=== PATIENT | female | born 1975 | race African-American/Black ===

== ENCOUNTER 2022-06-03 07:31 | Inpatient (IN) | payer MEDICAID ==
[~2022-06-03] VITALS: Ht 157.5 cm; Wt 80.7 kg
[2022-06-03 09:36] LABS: BASOPHILS % 0.4 % (0.0-2.0); EOSINOPHILS % 0.5 % (0.0-5.0); HEMATOCRIT. 23.1 % (36.0-48.0); LYMPHOCYTES % 8.5 % (20.0-50.0); MEAN CORPUSCULAR HEMOGLOBIN 22.4 pg (28.0-32.0); MEAN CORPUSCULAR VOLUME 74.8 fL (81.0-99.0); MEAN PLATELET VOLUME 8.2 fl (7.4-10.4); MONOCYTES % 5.3 % (2.0-8.0); NEUTROPHILS % 85.3 % (40.0-76.0); PLATELET 424 x1000/uL (130-400); RED BLOOD CELL COUNT 3.09 mill/uL (4.2-5.4)
[2022-06-03 09:44] LABS: HEMOGLOBIN. 6.9 g/dL (12.0-16.0)
[2022-06-03 09:46] LABS: CHLORIDE 110 mEq/L (98-107)
[2022-06-03 09:47] LABS: PROTHROMBIN TIME 10.9 sec (9.6-11.0)
[2022-06-03 12:30] VITALS: BP 85/48
[2022-06-03] MEDS ORDERED: CEFTRIAXONE 1 G PREMIX 50 ML IV SCH (12:30)
[2022-06-03] MEDS ORDERED: ACETAMINOPHEN 325MG TABLET PO PRN (12:30)
[2022-06-03] MEDS: IRON SUCROSE COMPLEX 100 MG/5 ML ML IV SCH (13:27)
[2022-06-03 13:39] VITALS: BP 85/48
[2022-06-03 16:00] VITALS: BP 83/53
[2022-06-03] MEDS: CEFTRIAXONE 1,000 MG in DEXTROSE 5% WATER 50 ML IV SCH (16:28)
[2022-06-03 20:00] VITALS: BP 100/53
[2022-06-04] VITALS (10 sets, daily range): BP systolic 91–105; BP diastolic 49–61
[2022-06-04] MEDS: IRON SUCROSE COMPLEX 100 MG/5 ML ML IV SCH (08:55)
[2022-06-04 13:05] LABS: BASOPHILS % 0.4 % (0.0-2.0); EOSINOPHILS % 1.1 % (0.0-5.0); MEAN CORPUSCULAR HEMOGLOBIN 22.7 pg (28.0-32.0); MEAN CORPUSCULAR VOLUME 74.5 fL (81.0-99.0); MEAN PLATELET VOLUME 8.6 fl (7.4-10.4); MONOCYTES % 6.8 % (2.0-8.0); NEUTROPHILS % 71.7 % (40.0-76.0); PLATELET 417 x1000/uL (130-400); RED BLOOD CELL COUNT 2.29 mill/uL (4.2-5.4); RED CELL DISTRIBUTION WIDTH 18.9 % (11.6-14.6)
[2022-06-04 13:21] LABS: HEMOGLOBIN. 5.2 g/dL (12.0-16.0)
[2022-06-04 13:22] LABS: HEMATOCRIT. 17.1 % (36.0-48.0)
[2022-06-04] MEDS: CEFTRIAXONE 1,000 MG in DEXTROSE 5% WATER 50 ML IV SCH (14:45)
[2022-06-04 16:15] LABS: CLARITY URINE CLOUDY (CLEAR); KETONES URINE NEGATIVE (NEGATIVE); LEUKOCYTE ESTERASE URINE 1+ (NEGATIVE); NITRITE URINE NEGATIVE (NEGATIVE); OCCULT BLOOD URINE 3+ (NEGATIVE); PROTEIN URINE 4+ (NEGATIVE); SPECIFIC GRAVITY URINE 1.037 (1.005-1.030); UROBILINOGEN URINE 0.2 E.U./dL (0.2-1.0)
[2022-06-04 16:36] LABS: COLOR URINE RED (YELLOW)
[2022-06-04] MEDS ORDERED: ESTROGENS,CONJUGATED 25MG/VIAL IV SCH (17:00)
[2022-06-04] MEDS: ONDANSETRON HCL 4MG/2ML INJ IV PRN (19:03)
[2022-06-04 20:50] LABS: HEMOGLOBIN 5.3 g/dL (12.0-16.0)
[2022-06-05] VITALS (23 sets, daily range): BP systolic 95–113; BP diastolic 50–85
[2022-06-05] MEDS: ONDANSETRON HCL 4MG/2ML INJ IV PRN (00:45)
[2022-06-05] MEDS: IRON SUCROSE COMPLEX 100 MG/5 ML ML IV SCH (08:39)
[2022-06-05] MEDS: CEFTRIAXONE 1,000 MG in DEXTROSE 5% WATER 50 ML IV SCH ×2 (14:06→14:12)
[2022-06-05] MEDS: ESTROGENS,CONJUGATED 1.25MG TABLET PO SCH (21:30)
[2022-06-05 21:37] LABS: HEMATOCRIT 27.5 % (36.0-48.0)
[2022-06-06] VITALS: BP 93/54
[2022-06-06 04:00] VITALS: BP 93/59
[2022-06-06 08:00] VITALS: BP 102/65
[2022-06-06] MEDS: ESTROGENS,CONJUGATED 1.25MG TABLET PO SCH (08:51)
[2022-06-06 09:56] VITALS: BP 102/65
[2022-06-06] MEDS ORDERED: LEVO500T90 MT (10:25)
[2022-06-06 16:33] LABS: HEMATOCRIT 17.2 % (36.0-48.0)
[2022-06-09] MEDS ORDERED: PR125 MT (11:48)
== END 2022-06-06 10:25 | disposition home or self-care (01) | DRG 663 ==
LOC: ER 07:31 → 8WST 11:00 → EDBEDREQTM 11:03 → EDBEDREQ 11:03 → ENRESERV 12:03
PROVIDERS: ADMIT Internal Medicine; ATTEND Internal Medicine
PROC: 30233N1 Transfusion of Nonautologous Red Blood Cells into Peripheral Vein, Percutaneous Approach (ICD-10-PCS; principal; 2022-06-04)
DX: D64.9 Anemia, unspecified (principal); R65.10 Systemic inflammatory response syndrome (SIRS) of non-infectious origin without acute organ dysfunction; E87.8 Other disorders of electrolyte and fluid balance, not elsewhere classified; D25.9 Leiomyoma of uterus, unspecified; N92.0 Excessive and frequent menstruation with regular cycle; N39.0 Urinary tract infection, site not specified; Z20.822 Contact with and (suspected) exposure to COVID-19
CPT/HCPCS: 36415; 76700; 80053; 81003; 85014; 85018; 85025; 86850; 86900; 86920; 93005; 99285; J0696; J1410; J2405; J7060; P9016

== ENCOUNTER 2022-06-10 12:52 | Emergency (ER) | payer MEDICAID ==
[~2022-06-10] VITALS: Ht 167.6 cm; Wt 80.0 kg
[~2022-06-10 12:52] MED LIST: LEVO500T90 MT; PR125 MT
[2022-06-10 12:58] VITALS: BP 115/71
[2022-06-10] MEDS ORDERED: CEPH500C2 MT (14:10)
== END 2022-06-10 14:40 | disposition home or self-care (01) ==
LOC: ER 12:52
DX: M79.641 Pain in right hand (principal)
CPT/HCPCS: 99281; Z7610

== ENCOUNTER 2022-08-05 19:54 | Emergency (ER) | payer MEDICAID ==
[~2022-08-05] VITALS: Ht 160 cm; Wt 73.0 kg
[~2022-08-05 19:54] MED LIST changes: +CEPH500C2 MT; +LEVO-65 MT; -LEVO500T90 MT
[2022-08-05] MEDS ORDERED: ACETAMINOPHEN 325MG TABLET PO ONE (22:00)
[2022-08-05 22:20] VITALS: BP 110/52
== END 2022-08-05 22:35 | disposition home or self-care (01) ==
LOC: ER 19:54
DX: M54.2 Cervicalgia (principal); M25.512 Pain in left shoulder; D64.9 Anemia, unspecified; V49.49XA Driver injured in collision with other motor vehicles in traffic accident, initial encounter; Y93.89 Activity, other specified; Y92.89 Other specified places as the place of occurrence of the external cause; Y99.8 Other external cause status
CPT/HCPCS: 73030; 99283

== ENCOUNTER 2022-08-18 09:45 | Emergency (ER) | payer MEDICAID, OTHER ==
[~2022-08-18] VITALS: Ht 167.6 cm; Wt 80.0 kg
[2022-08-18 10:06] VITALS: BP 103/55
== END 2022-08-18 14:26 | disposition left against medical advice (07) ==
LOC: ER 10:26
DX: Z53.21 Procedure and treatment not carried out due to patient leaving prior to being seen by health care provider (principal); R07.9 Chest pain, unspecified; R00.2 Palpitations; R53.1 Weakness
CPT/HCPCS: 93005